=== PATIENT | male | born 1940 | race African-American/Black ===

== ENCOUNTER 2018-01-10 04:07 | Inpatient (IN) | payer OTHER, BC ==
[~2018-01-10] VITALS: Ht 167.6 cm; Wt 81.2 kg
--- NOTE | ~2018-01-10 | EKG ---
[address] [place] [address] ELECTROCARDIOGRAM REPORT Name: Maureen ALMENDAREZ Room #: 354-P ADM IN M.R.#: [id number] Admission: 01/10/18 Attend Phys: Gerard Morales MD Discharge: Date of : 42 Report #: [id number] THIS REPORT FOR: //name// [facility] ED Test Date: 2018-01-10 Test Time: 04:14:39 Pat Name: Maureen ALMENDAREZ Department: Room: [facility] Gender: M Drafting Supervisor: [email or web address] : 1940 Requested By: Latrell Joseph Order Number: [id number] MD: Derrek Lynch Measurements Intervals [place] Rate: 64 P: 60 CO: 165 QRS: 171 QRSD: 118 T: 144 QT: 444 QTc: 458 Interpretive Statements Sinus rhythm Poor R wave progression T-wave abnormality, consider lateral ischemia Compared to ECG 09/23/2007 03:16:08 premature ventricular complexes are no longer present Electronically Signed On 01-10-2018 7:28:14 CDT by Derrek Lynch [email or web address] <ELECTRONICALLY SIGNED> By: Derrek Lynch MD, FACC 01/10/18 0728 0414 0414 Derrek Lynch MD, [facility] /EPI
[2018-01-10 04:11] VITALS: BP 143/79
[2018-01-10 04:34] LABS: ABSOLUTE NEUTROPHILS 3.1 thou/uL (1.4-8.2); BASOPHILS 1.2 % (0.0-2.0); EOSINOPHILS 5.3 % (0.0-3.0); HEMATOCRIT 40.4 % (42.0-52.0); HEMOGLOBIN 13.6 gm/dL (14.0-18.0); LYMPHOCYTES 24.5 % (24.0-44.0); MCHC 33.8 g/dL (28.0-37.0); MCV 88.9 fL (80.0-100.0); MONOCYTES 10.9 % (1.0-8.0); PLATELET COUNT 135 thou/uL (150-400); POLYS 58.1 % (36.0-66.0); RBC 4.55 mil/uL (4.50-6.00); RDW 13.8 % (10.5-14.5); WBC 5.3 thou/uL (4.0-11.0)
[2018-01-10 04:38] LABS: ANION GAP 11 mmol/L (7-16); BUN 14 mg/dL (7-18); CALCIUM 9.5 mg/dL (8.5-10.1); CHLORIDE 103 mmol/L (98-107); CO2 24 mmol/L (21-32); CREATININE 1.3 mg/dL (0.7-1.3); GLUCOSE 258 mg/dL (74-106); SODIUM 138 mmol/L (136-145)
[2018-01-10 04:46] LABS: TROPONIN-I <0.06 ng/mL (<0.06)
[2018-01-10 05:55] VITALS: BP 140/71
[2018-01-10 06:15] VITALS: BP 137/84
[2018-01-10 08:18] VITALS: BP 137/84
[2018-01-10] MEDS ORDERED: COREG25 MG PO (09:45)
[2018-01-10] MEDS ORDERED: LASIX 20 MG TAB20 MG PO (09:46)
[2018-01-10] MEDS ORDERED: NOVOLOG100 UNIT/1 SUBQ (09:47)
[2018-01-10] MEDS ORDERED: SIMVASTATIN10 MG PO (09:47)
[2018-01-10] MEDS ORDERED: LANTUS SUBQ (09:49)
[2018-01-10 12:06] VITALS: BP 157/88
[2018-01-10 12:40] VITALS: BP 157/88
== END 2018-01-10 12:57 | disposition home or self-care (01) | DRG 313 ==
LOC: ER 04:07 → EROBS 05:38 → 3W 05:38
PROVIDERS: Emergency Medicine; Nurse Practitioner
DX: R07.9 Chest pain, unspecified (principal); I42.9 Cardiomyopathy, unspecified; I25.10 Atherosclerotic heart disease of native coronary artery without angina pectoris; M19.90 Unspecified osteoarthritis, unspecified site; I11.0 Hypertensive heart disease with heart failure; I50.9 Heart failure, unspecified; E11.65 Type 2 diabetes mellitus with hyperglycemia; D69.6 Thrombocytopenia, unspecified; E78.5 Hyperlipidemia, unspecified; Z95.1 Presence of aortocoronary bypass graft; Z95.5 Presence of coronary angioplasty implant and graft; Z86.73 Personal history of transient ischemic attack (TIA), and cerebral infarction without residual deficits; Z88.8 Allergy status to other drugs, medicaments and biological substances; Z79.4 Long term (current) use of insulin; Z79.899 Other long term (current) drug therapy; I25.2 Old myocardial infarction; Z95.810 Presence of automatic (implantable) cardiac defibrillator; Z82.49 Family history of ischemic heart disease and other diseases of the circulatory system; Z80.9 Family history of malignant neoplasm, unspecified; Z87.891 Personal history of nicotine dependence
CPT/HCPCS: 10879